=== PATIENT | male | born 1965 | race Caucasian/White ===

== ENCOUNTER 2019-06-05 14:02 | Inpatient (IN) ==
[2019-06-05] MEDS ORDERED: Naloxone 0.4 MG/ML INJ IVP PRN (16:38)
[2019-06-05] MEDS: 0.9 % Sodium Chloride 1,000 ML IVC SCH (18:10)
[2019-06-05] MEDS: Morphine Sulfate 2 MG/ML SYRINGE IVP PRN (18:11)
[2019-06-05 19:30] LABS: Hepatitis B Surface Antigen Nonreactive (Nonreactive)
[2019-06-05 19:59] LABS: Hepatitis C Virus Antibody Nonreactive (Nonreactive)
[2019-06-05 20:00] LABS: Hepatitis B Core IgM Nonreactive (Nonreactive)
[2019-06-05 20:01] LABS: Hepatitis A Antibody IgM Nonreactive (Nonreactive)
[2019-06-06] MEDS: Morphine Sulfate 2 MG/ML SYRINGE IVP PRN ×3 (00:24→11:44)
[2019-06-06 01:46] LABS: Basophils % 0.8 %; Eosinophils # 0.6 K/mcL (0.0-0.6); Eosinophils % 11.2 %; Hematocrit 38.2 % (37.5-50.1); Hemoglobin 12.9 g/dL (12.9-16.9); Immature Granulocytes % 0.2 % (0-4); Lymphocytes # 2.1 K/mcL (0.6-4.6); Lymphocytes % 39.4 %; Mean Corpuscular HGB Conc 33.8 g/dL (31.6-35.5); Mean Corpuscular Hemoglobin 31.4 pg (28.0-33.3); Mean Corpuscular Volume 92.9 fL (83.0-100.0); Mean Platelet Volume 11.1 fL (9.4-12.4); Monocytes # 0.8 K/mcL (0.0-1.3); Neutrophils # 1.8 K/mcL (1.6-8.9); Platelet Count 179 K/mcL (140-400); Red Blood Count 4.11 M/mcL (4.19-5.50); Red Cell Distribution Width 15.6 % (11.5-14.5); Segmented Neutrophils % 33.4 %; White Blood Count 5.3 K/mcL (4.3-11.1)
[2019-06-06 02:18] LABS: BUN/Creatinine Ratio 14 (6-26); Blood Urea Nitrogen 12 mg/dL (6-20); Calcium 8.2 mg/dL (8.6-10.3); Carbon Dioxide 20 mEq/L (23-29); Chloride 107 mEq/L (98-107); Glucose 73 mg/dL (70-105); Osmolality,Calculated 278 (280-300); Potassium 4.2 mEq/L (3.5-5.1); Sodium 135 mEq/L (136-145); eGFR For African Americans > 60 (> 60); eGFR For Non-African Americans > 60 (> 60)
[2019-06-06] MEDS: 0.9 % Sodium Chloride 1,000 ML IVC SCH (05:10)
[2019-06-06 09:44] LABS: Albumin 3.4 g/dL (3.5-5.7); Albumin/Globulin Ratio 1.3 (1.1-2.2); Alkaline Phosphatase 131 Units/L (34-104); Aspartate Amino Transferase 848 Units/L (13-39); Bilirubin,Direct 1.9 mg/dL (0.0-0.2); Bilirubin,Indirect 2.7 mg/dL (0.0-1.0); Bilirubin,Total 4.6 mg/dL (0.3-1.0); Globulin 2.6 g/dL (2.4-3.5)
[2019-06-06 09:45] LABS: Alanine Aminotransferase 908 Units/L (7-52)
[2019-06-06] MEDS: Piperacillin/Tazobactam 3.375 GM in 0.9 % Sodium Chloride Mini Bag 100 ML IVPB SCH ×3 (11:44→23:36)
[2019-06-06] MEDS ORDERED: *HR* Labetalol 20 MG/4 ML SYRINGE IVP PRN (19:18)
[2019-06-06] MEDS ORDERED: *HR* Promethazine 25 MG/ML VIAL IVP PRN (19:18)
[2019-06-06] MEDS ORDERED: *HR* HYDROmorphone (PF) 1 MG/ML SYRINGE IVP PRN (19:18)
[2019-06-06] MEDS ORDERED: Ondansetron 4 MG/2 ML VIAL IVP PRN (19:18)
[2019-06-06] MEDS ORDERED: *HR* FentaNYL (PF) 100 MCG/2 ML VIAL ONE (20:13)
[2019-06-06] MEDS ORDERED: *HR* Midazolam HCl 2 MG/2 ML VIAL ONE (20:13)
[2019-06-06] MEDS ORDERED: Lidocaine -MPF 2% 2 ML VIAL ONE (20:13)
[2019-06-06] MEDS ORDERED: *HR* Succinylcholine 200 MG/10 ML VIAL IVP ONE (20:13)
[2019-06-06] MEDS ORDERED: Dexamethasone 4 MG/ML VIAL ONE (20:13)
[2019-06-06] MEDS ORDERED: *HR* Propofol 200 MG/20 ML VIAL IVP ONE (20:13)
[2019-06-06] MEDS ORDERED: Ondansetron 4 MG/2 ML VIAL ONE (20:13)
[2019-06-06] MEDS ORDERED: *HR* Rocuronium Bromide 50 MG/5 ML VIAL ONE (20:13)
[2019-06-06] MEDS ORDERED: EPHEDrine 50 MG/ML VIAL ONE (20:24)
[2019-06-06] MEDS ORDERED: *HR* PHENYLEPHRINE 1,000 MCG/10 ML SYRINGE IVP ONE (20:27)
[2019-06-06] MEDS ORDERED: *HR* HYDROMORPHONE 2 MG/ML VIAL ONE (20:46)
[2019-06-06] MEDS ORDERED: Morphine Sulfate 2 MG/ML SYRINGE IVP PRN (22:43)
[2019-06-06] MEDS ORDERED: Naloxone 0.4 MG/ML INJ IVP PRN (22:43)
[2019-06-07 03:36] LABS: Basophils % 0.3 %; Eosinophils % 0.5 %; Hematocrit 40.8 % (37.5-50.1); Immature Granulocytes % 0.3 % (0-4); Lymphocytes # 0.9 K/mcL (0.6-4.6); Lymphocytes % 15.8 %; Mean Corpuscular HGB Conc 31.9 g/dL (31.6-35.5); Mean Corpuscular Volume 94.2 fL (83.0-100.0); Mean Platelet Volume 11.7 fL (9.4-12.4); Monocytes # 0.2 K/mcL (0.0-1.3); Monocytes % 4.2 %; Neutrophils # 4.5 K/mcL (1.6-8.9); Platelet Count 251 K/mcL (140-400); Red Blood Count 4.33 M/mcL (4.19-5.50); Red Cell Distribution Width 16.3 % (11.5-14.5); Segmented Neutrophils % 78.9 %; White Blood Count 5.8 K/mcL (4.3-11.1)
[2019-06-07 04:23] LABS: Alanine Aminotransferase 983 Units/L (7-52); Albumin 3.7 g/dL (3.5-5.7); Albumin/Globulin Ratio 1.3 (1.1-2.2); Alkaline Phosphatase 138 Units/L (34-104); Aspartate Amino Transferase 943 Units/L (13-39); BUN/Creatinine Ratio 12 (6-26); Bilirubin,Total 6.8 mg/dL (0.3-1.0); Blood Urea Nitrogen 17 mg/dL (6-20); Calcium 8.9 mg/dL (8.6-10.3); Carbon Dioxide 18 mEq/L (23-29); Chloride 104 mEq/L (98-107); Globulin 2.9 g/dL (2.4-3.5); Glucose 119 mg/dL (70-105); Osmolality,Calculated 283 (280-300); Phosphorous 4.7 mg/dL (2.7-4.5); Potassium 4.6 mEq/L (3.5-5.1); Sodium 135 mEq/L (136-145); Total Protein 6.6 g/dL (6.4-8.9); eGFR For African Americans > 60 (> 60); eGFR For Non-African Americans 53 (> 60)
[2019-06-07] MEDS: Piperacillin/Tazobactam 3.375 GM in 0.9 % Sodium Chloride Mini Bag 100 ML IVPB SCH ×3 (08:07→23:27)
[2019-06-07 09:40] LABS: INR 1.2; Prothrombin Time 13.6 Seconds (9.4-12.1)
[2019-06-07] MEDS: 0.9 % Sodium Chloride 1,000 ML IVC SCH (09:44)
[2019-06-07 12:50] LABS: Amphetamine Screen,Urine Negative ng/mL (Cutoff=1000); Barbiturate Screen,Urine Negative ng/mL (Cutoff=200); Benzodiazepines Screen,Urine Positive ng/mL (Cutoff=200); Cannabinoid Screen,Urine Negative ng/mL (Cutoff = 50); Cocaine Screen,Urine Negative ng/mL (Cutoff= 300); Opiate Screen,Urine Positive ng/mL (Cutoff=300); Phencyclidine Screen,Urine Negative ng/mL (Cutoff=25)
[2019-06-07 13:53] LABS: % Iron Saturation 30 % (20-55); Iron 108 mcg/dL (65-175); Transferrin 259 mg/dL (203-362)
[2019-06-07] MEDS: Thiamine (B-1) 100 MG TABLET PO SCH (14:19)
[2019-06-07] MEDS: Folic Acid 1 MG TABLET PO SCH (14:19)
[2019-06-08 02:00] LABS: Basophils % 0.5 %; Eosinophils # 0.1 K/mcL (0.0-0.6); Eosinophils % 1.8 %; Hematocrit 30.4 % (37.5-50.1); Immature Granulocytes % 0.3 % (0-4); Lymphocytes # 2.1 K/mcL (0.6-4.6); Lymphocytes % 28.9 %; Mean Corpuscular HGB Conc 34.2 g/dL (31.6-35.5); Mean Corpuscular Hemoglobin 31.2 pg (28.0-33.3); Mean Corpuscular Volume 91.3 fL (83.0-100.0); Mean Platelet Volume 11.3 fL (9.4-12.4); Monocytes % 12.9 %; Neutrophils # 4.1 K/mcL (1.6-8.9); Platelet Count 228 K/mcL (140-400); Red Blood Count 3.33 M/mcL (4.19-5.50); Red Cell Distribution Width 15.9 % (11.5-14.5); Segmented Neutrophils % 55.6 %; White Blood Count 7.4 K/mcL (4.3-11.1)
[2019-06-08 02:03] LABS: Hemoglobin 10.4 g/dL (12.9-16.9)
[2019-06-08 02:06] LABS: INR 1.2; Prothrombin Time 13.6 Seconds (9.4-12.1)
[2019-06-08 02:32] LABS: Alanine Aminotransferase 724 Units/L (7-52); Albumin 3.2 g/dL (3.5-5.7); Albumin/Globulin Ratio 1.3 (1.1-2.2); Alkaline Phosphatase 131 Units/L (34-104); Aspartate Amino Transferase 604 Units/L (13-39); BUN/Creatinine Ratio 18 (6-26); Bilirubin,Total 4.1 mg/dL (0.3-1.0); Blood Urea Nitrogen 21 mg/dL (6-20); Calcium 8.3 mg/dL (8.6-10.3); Carbon Dioxide 23 mEq/L (23-29); Chloride 104 mEq/L (98-107); Globulin 2.5 g/dL (2.4-3.5); Glucose 120 mg/dL (70-105); Osmolality,Calculated 282 (280-300); Potassium 3.9 mEq/L (3.5-5.1); Sodium 134 mEq/L (136-145); Total Protein 5.7 g/dL (6.4-8.9); eGFR For African Americans > 60 (> 60); eGFR For Non-African Americans > 60 (> 60)
[2019-06-08] MEDS: 0.9 % Sodium Chloride 1,000 ML IVC SCH ×2 (05:51→08:36)
[2019-06-08] MEDS: Thiamine (B-1) 100 MG TABLET PO SCH (08:37)
[2019-06-08] MEDS: Folic Acid 1 MG TABLET PO SCH (08:37)
[2019-06-08] MEDS: Piperacillin/Tazobactam 3.375 GM in 0.9 % Sodium Chloride Mini Bag 100 ML IVPB SCH ×3 (08:39→23:30)
[2019-06-08] MEDS ORDERED: MOM Conc 10 ML UD.LIQ PO ONE (11:57)
[2019-06-08] MEDS: polyethylene glycoL 3350 17 GM POWD.PACK PO SCH (12:30)
[2019-06-08] MEDS: Sennosides/Docusate Sodium TABLET PO SCH ×2 (12:30→20:39)
[2019-06-08] MEDS ORDERED: Bisacodyl 10 MG RECTAL SUPPOSITORY RC PRN (17:53)
[2019-06-09 00:47] LABS: Basophils # 0.1 K/mcL (0.0-0.2); Basophils % 0.8 %; Eosinophils # 0.5 K/mcL (0.0-0.6); Hematocrit 30.5 % (37.5-50.1); Hemoglobin 10.4 g/dL (12.9-16.9); Immature Granulocytes % 0.5 % (0-4); Lymphocytes # 2.8 K/mcL (0.6-4.6); Lymphocytes % 42.9 %; Mean Corpuscular HGB Conc 34.1 g/dL (31.6-35.5); Mean Corpuscular Hemoglobin 31.4 pg (28.0-33.3); Mean Corpuscular Volume 92.1 fL (83.0-100.0); Mean Platelet Volume 10.9 fL (9.4-12.4); Monocytes # 0.9 K/mcL (0.0-1.3); Monocytes % 14.1 %; Neutrophils # 2.2 K/mcL (1.6-8.9); Platelet Count 212 K/mcL (140-400); Red Blood Count 3.31 M/mcL (4.19-5.50); Red Cell Distribution Width 16.3 % (11.5-14.5); Segmented Neutrophils % 33.7 %; White Blood Count 6.5 K/mcL (4.3-11.1)
[2019-06-09 01:21] LABS: Alanine Aminotransferase 775 Units/L (7-52); Albumin 3.1 g/dL (3.5-5.7); Albumin/Globulin Ratio 1.2 (1.1-2.2); Alkaline Phosphatase 140 Units/L (34-104); Aspartate Amino Transferase 707 Units/L (13-39); BUN/Creatinine Ratio 15 (6-26); Bilirubin,Total 3.8 mg/dL (0.3-1.0); Blood Urea Nitrogen 17 mg/dL (6-20); Calcium 8.1 mg/dL (8.6-10.3); Carbon Dioxide 24 mEq/L (23-29); Chloride 105 mEq/L (98-107); Globulin 2.5 g/dL (2.4-3.5); Glucose 88 mg/dL (70-105); Osmolality,Calculated 283 (280-300); Potassium 3.9 mEq/L (3.5-5.1); Sodium 136 mEq/L (136-145); Total Protein 5.6 g/dL (6.4-8.9); eGFR For African Americans > 60 (> 60); eGFR For Non-African Americans > 60 (> 60)
[2019-06-09] MEDS: polyethylene glycoL 3350 17 GM POWD.PACK PO SCH (08:45)
[2019-06-09] MEDS: Thiamine (B-1) 100 MG TABLET PO SCH (08:45)
[2019-06-09] MEDS: Sennosides/Docusate Sodium TABLET PO SCH (08:45)
[2019-06-09] MEDS: Folic Acid 1 MG TABLET PO SCH (08:45)
[2019-06-09] MEDS: Piperacillin/Tazobactam 3.375 GM in 0.9 % Sodium Chloride Mini Bag 100 ML IVPB SCH (08:46)
[2019-06-09 10:02] LABS: ANA IgG by ELISA DETECTED (None Detected); F-Actin (sm muscle) Ab IgG 42 Units (0-19); Immunoglobulin A (CELIAC) 115 mg/dL (68-408)
[2019-06-09 10:07] LABS: AFP Tumor Marker Non-Pregnant 7 ng/mL (0-9)
[2019-06-09 11:15] VITALS: BP 126/78
[2019-06-10 06:55] LABS: Serine Protease-3 Antibody 5 AU/mL (0-19); Smooth Muscle Ab Titer IgG <1:20 (<1:20); Tissue Transglutaminase IgA <2 U/mL (0-3)
[2019-06-10 12:50] LABS: Alpha 2 Globulin (PEP) 0.51 g/dL (0.48-1.05); Beta Globulin (PEP) 0.67 g/dL (0.48-1.10)
[2019-06-10 15:21] LABS: IFE Reflexed NOT DONE
[2019-06-10 15:50] LABS: A1A SZ Specimen WHOLE BLOOD; Alpha-1-Antitrypsin S Allele HETEROZYGOUS; Alpha-1-Antitrypsin Z Allele NEGATIVE
[2019-06-10 17:04] LABS: Alpha-1-Antitrypsin 148 mg/dL (90-200)
[2019-06-10 18:24] LABS: Saccharomyces cerevisiae IgA 4.9 Units (0.0-24.9)
[2019-06-12 07:14] LABS: ANA HEp-2 IgG IFA <1:80 (<1:80)
== END 2019-06-09 13:03 | disposition home or self-care (01) | DRG 418 ==
LOC: 3BNU → SUATTDRO 15:46
PROVIDERS: ADMIT Internal Medicine; ATTEND Internal Medicine

== ENCOUNTER 2021-06-27 04:42 | Observation (INO) ==
[2021-06-27] MEDS ORDERED: Isovue-370 500 ML BOTTLE IVP ONE (05:06)
[2021-06-27 05:13] LABS: Basophils % 0.4 %; Eosinophils # 0.2 K/mcL (0.0-0.6); Eosinophils % 2.4 %; Hemoglobin 12.2 g/dL (12.9-16.9); Immature Granulocytes % 0.3 % (0-4); Lymphocytes # 2.7 K/mcL (0.6-4.6); Mean Corpuscular Hemoglobin 30.8 pg (28.0-33.3); Mean Corpuscular Volume 93.4 fL (83.0-100.0); Mean Platelet Volume 11.6 fL (9.4-12.4); Monocytes # 0.9 K/mcL (0.0-1.3); Monocytes % 12.1 %; Neutrophils # 3.7 K/mcL (1.6-8.9); Platelet Count 158 K/mcL (140-400); Red Blood Count 3.96 M/mcL (4.19-5.50); Red Cell Distribution Width 15.2 % (11.5-14.5); Segmented Neutrophils % 48.8 %
[2021-06-27 05:23] LABS: White Blood Count 7.6 K/mcL (4.3-11.1)
[2021-06-27 05:25] LABS: INR 1.4; Prothrombin Time 15.9 Seconds (9.4-12.1)
[2021-06-27 05:27] LABS: Activated Partial Thrombo Time 31.2 Seconds (26.0-36.0)
[2021-06-27 05:38] LABS: Alanine Aminotransferase 90 Units/L (7-52); Albumin/Globulin Ratio 1.2 (1.1-2.2); Alkaline Phosphatase 73 Units/L (34-104); Aspartate Amino Transferase 88 Units/L (13-39); BUN/Creatinine Ratio 14 (6-26); Bilirubin,Direct 0.7 mg/dL (0.0-0.2); Bilirubin,Indirect 1.2 mg/dL (0.0-1.0); Bilirubin,Total 1.9 mg/dL (0.3-1.0); Blood Urea Nitrogen 14 mg/dL (6-20); Calcium 9.2 mg/dL (8.6-10.3); Carbon Dioxide 27 mEq/L (23-29); Chloride 107 mEq/L (98-107); Globulin 3.3 g/dL (2.4-3.5); Glucose 91 mg/dL (70-105); Osmolality,Calculated 288 (280-300); Potassium 3.9 mEq/L (3.5-5.1); Sodium 139 mEq/L (136-145); Total Protein 7.3 g/dL (6.4-8.9); eGFR For African Americans > 60 (> 60); eGFR For Non-African Americans > 60 (> 60)
[2021-06-27] MEDS ORDERED: Aspirin 325 MG TABLET PO ONE (05:41)
[2021-06-27] MEDS: Nitroglycerin 0.4 MG TAB.SUBL SL STA ×2 (06:07→06:18)
[2021-06-27] MEDS ORDERED: Morphine Sulfate 2 MG/ML SYRINGE IVP ONE (06:44)
[2021-06-27] MEDS ORDERED: Ondansetron 4 MG/2 ML VIAL IVP STA (06:45)
[2021-06-27] MEDS ORDERED: Naloxone 0.4 MG/ML INJ IVP PRN (09:54)
[2021-06-27] MEDS ORDERED: Ondansetron 4 MG/2 ML VIAL IVP PRN (09:54)
[2021-06-27] MEDS ORDERED: *HR* HYDROcodone/Acet 5/325 mg TABLET PO PRN (09:54)
[2021-06-27] MEDS ORDERED: Acetaminophen 325 MG TABLET PO PRN (09:54)
[2021-06-27] MEDS ORDERED: *HR* OxyCODONE Immed Rel 5 MG TABLET PO PRN (09:54)
[2021-06-27] MEDS ORDERED: Perflutren Lipid Microsphere 1.3 ML in 0.9 % Sodium Chloride 8.7 ML IVP PRN (10:00)
[2021-06-27] MEDS ORDERED: *HR* Heparin 5,000 UNIT/ML VIAL IVP PRN (10:01)
[2021-06-27] MEDS ORDERED: *HR* Heparin 5,000 UNIT/ML VIAL IVP ONE (10:01)
[2021-06-27] MEDS ORDERED: Heparin 25,000UNIT/250ML 1/2NS 25,000 UNIT/250 ML IV.SOLN IVC SCH (10:15)
[2021-06-27 13:10] LABS: Immature Platelets 6.8 % (1.1-6.1); Mean Platelet Volume 11.2 fL (9.4-12.4); Red Cell Distribution Width 15.2 % (11.5-14.5)
[2021-06-27 13:21] LABS: Hematocrit 34.5 % (37.5-50.1); Hemoglobin 11.4 g/dL (12.9-16.9); Mean Corpuscular Hemoglobin 31.1 pg (28.0-33.3); Red Blood Count 3.67 M/mcL (4.19-5.50)
[2021-06-27] MEDS: Heparin 25,000UNIT/250ML 1/2NS 25,000 UNIT/250 ML IV.SOLN IVC SCH (13:25)
[2021-06-27] MEDS ORDERED: Nicotine 2 MG GUM BC PRN (14:22)
[2021-06-27] MEDS: CYCLOSPORINE 25 MG PO SCH (19:51)
[2021-06-27] MEDS: *HR* Heparin 5,000 UNIT/ML VIAL IVP PRN (20:28)
[2021-06-28 03:26] LABS: Red Blood Count 3.68 M/mcL (4.19-5.50); Red Cell Distribution Width 15.2 % (11.5-14.5)
[2021-06-28 03:28] LABS: Basophils % 0.6 %; Eosinophils # 0.3 K/mcL (0.0-0.6); Eosinophils % 4.3 %; Hematocrit 34.2 % (37.5-50.1); Hemoglobin 11.4 g/dL (12.9-16.9); Immature Granulocytes % 0.5 % (0-4); Immature Platelets 7.9 % (1.1-6.1); Lymphocytes % 41.9 %; Mean Corpuscular HGB Conc 33.3 g/dL (31.6-35.5); Mean Corpuscular Volume 92.9 fL (83.0-100.0); Mean Platelet Volume 11.5 fL (9.4-12.4); Monocytes # 0.9 K/mcL (0.0-1.3); Monocytes % 14.2 %; Neutrophils # 2.4 K/mcL (1.6-8.9); Platelet Count 134 K/mcL (140-400); Segmented Neutrophils % 38.5 %; White Blood Count 6.3 K/mcL (4.3-11.1)
[2021-06-28 03:32] LABS: Lymphocytes # 2.6 K/mcL (0.6-4.6)
[2021-06-28] MEDS: *HR* Heparin 5,000 UNIT/ML VIAL IVP PRN (03:33)
[2021-06-28 03:40] LABS: BUN/Creatinine Ratio 14 (6-26); Blood Urea Nitrogen 12 mg/dL (6-20); Calcium 8.5 mg/dL (8.6-10.3); Carbon Dioxide 24 mEq/L (23-29); Chloride 105 mEq/L (98-107); Glucose 83 mg/dL (70-105); Magnesium 1.7 mg/dL (1.6-2.6); Osmolality,Calculated 277 (280-300); Potassium 3.8 mEq/L (3.5-5.1); Sodium 134 mEq/L (136-145); eGFR For African Americans > 60 (> 60); eGFR For Non-African Americans > 60 (> 60)
[2021-06-28 03:41] LABS: Albumin 3.4 g/dL (3.5-5.7); Albumin/Globulin Ratio 1.1 (1.1-2.2); Bilirubin,Direct 0.7 mg/dL (0.0-0.2); Bilirubin,Indirect 1.1 mg/dL (0.0-1.0); Bilirubin,Total 1.8 mg/dL (0.3-1.0); Globulin 3.1 g/dL (2.4-3.5); Total Protein 6.5 g/dL (6.4-8.9)
[2021-06-28] MEDS ORDERED: Aspirin Enteric Coated 81 MG Tablet PO SCH ×2 (09:00)
[2021-06-28] MEDS ORDERED: Nicotine 14 MG PATCH.TD24 TD SCH (09:00)
[2021-06-28] MEDS ORDERED: predniSONE 5 MG TABLET PO SCH (09:00)
[2021-06-28] MEDS: CYCLOSPORINE 25 MG PO SCH (09:18)
[2021-06-28] MEDS: Heparin 25,000UNIT/250ML 1/2NS 25,000 UNIT/250 ML IV.SOLN IVC SCH (10:26)
[2021-06-28 11:06] VITALS: BP 111/72; PULSE 60; TEMP 98; O2SAT 91
== END 2021-06-28 13:13 | disposition left against medical advice (07) ==
LOC: EMEROOARM 04:42 → 2ANU 04:42 → SUATTDRO 09:42 → 2ANU 10:41
PROVIDERS: ADMIT Pharmacist; ATTEND Internal Medicine

== ENCOUNTER 2021-11-06 20:30 | Inpatient (IN) ==
[2021-11-06] MEDS ORDERED: Benzonatate 100 MG CAPSULE PO STA (21:24)
[2021-11-06] MEDS ORDERED: Ondansetron 4 MG/2 ML VIAL IVP STA ×2 (21:25→23:49)
[2021-11-06] MEDS ORDERED: Morphine Sulfate 2 MG/ML SYRINGE IVP ONE (21:25)
[2021-11-06 22:08] LABS: Basophils # 0.1 K/mcL (0.0-0.2); Eosinophils # 0.4 K/mcL (0.0-0.6); Eosinophils % 6.1 %; Hematocrit 37.3 % (37.5-50.1); Hemoglobin 13.1 g/dL (12.9-16.9); Immature Granulocytes % 0.3 % (0-4); Lymphocytes # 1.3 K/mcL (0.6-4.6); Mean Corpuscular HGB Conc 35.1 g/dL (31.6-35.5); Mean Corpuscular Hemoglobin 31.1 pg (28.0-33.3); Mean Corpuscular Volume 88.6 fL (83.0-100.0); Mean Platelet Volume 10.5 fL (9.4-12.4); Monocytes # 1.1 K/mcL (0.0-1.3); Monocytes % 18.5 %; Neutrophils # 3.1 K/mcL (1.6-8.9); Platelet Count 217 K/mcL (140-400); Red Blood Count 4.21 M/mcL (4.19-5.50); Red Cell Distribution Width 16.9 % (11.5-14.5); Segmented Neutrophils % 52.1 %; White Blood Count 5.9 K/mcL (4.3-11.1)
[2021-11-06 22:15] LABS: INR 1.4; Prothrombin Time 15.5 Seconds (9.4-12.1)
[2021-11-06 22:17] LABS: Activated Partial Thrombo Time 35.6 Seconds (26.0-36.0)
[2021-11-06 22:33] LABS: Alanine Aminotransferase 193 Units/L (7-52); Albumin 3.2 g/dL (3.5-5.7); Albumin/Globulin Ratio 0.7 (1.1-2.2); Alkaline Phosphatase 143 Units/L (34-104); Aspartate Amino Transferase 381 Units/L (13-39); BUN/Creatinine Ratio 16 (6-26); Bilirubin,Direct 3.1 mg/dL (0.0-0.2); Bilirubin,Indirect 2.6 mg/dL (0.0-1.0); Bilirubin,Total 5.7 mg/dL (0.3-1.0); Blood Urea Nitrogen 45 mg/dL (6-20); Calcium 8.9 mg/dL (8.6-10.3); Carbon Dioxide 17 mEq/L (23-29); Chloride 102 mEq/L (98-107); Ethanol < 10 mg/dL (Less than 10); Globulin 4.3 g/dL (2.4-3.5); Glucose 97 mg/dL (70-105); Lipase 95 Units/L (11-82); Osmolality,Calculated 277 (280-300); Potassium 4.3 mEq/L (3.5-5.1); Sodium 128 mEq/L (136-145); Total Protein 7.5 g/dL (6.4-8.9); Troponin I < 0.03 ng/mL (< 0.04)
[2021-11-06 23:24] LABS: Amphetamine Screen,Urine Negative ng/mL (Cutoff=1000); Barbiturate Screen,Urine Negative ng/mL (Cutoff=200); Benzodiazepines Screen,Urine Negative ng/mL (Cutoff=200); Cannabinoid Screen,Urine Negative ng/mL (Cutoff = 50); Cocaine Screen,Urine Negative ng/mL (Cutoff= 300); Opiate Screen,Urine Positive ng/mL (Cutoff=300); Phencyclidine Screen,Urine Negative ng/mL (Cutoff=25)
[2021-11-06] MEDS ORDERED: Famotidine 20 MG/2 ML VIAL IVP ONE (23:49)
[2021-11-07] MEDS ORDERED: cefTRIAXone 2,000 MG in 0.9 % Sodium Chloride Mini Bag 100 ML IVPB ONE (00:05)
[2021-11-07] MEDS ORDERED: Azithromycin 500 MG in 0.9 % Sodium Chloride 250 ML IVPB ONE (00:06)
[2021-11-07] MEDS ORDERED: Morphine Sulfate 2 MG/ML SYRINGE IVP ONE (00:12)
[2021-11-07 04:34] LABS: Influenza A PCR Negative (Negative); Influenza B PCR Negative (Negative); Resp. Syncytial Virus PCR Negative (Negative)
[2021-11-07 04:42] LABS: SARS-CoV-2 by PCR (In House) Negative (Negative)
[2021-11-07] MEDS ORDERED: 0.9 % Sodium Chloride 1,000 ML IVC ONE (09:24)
[2021-11-07] MEDS ORDERED: predniSONE 10 MG TABLET PO SCH (09:30)
[2021-11-07] MEDS ORDERED: Melatonin 3 MG TABLET PO PRN (09:35)
[2021-11-07] MEDS ORDERED: Acetaminophen 325 MG TABLET PO PRN (09:35)
[2021-11-07] MEDS ORDERED: Ondansetron 4 MG/2 ML VIAL IVP PRN (09:35)
[2021-11-07] MEDS ORDERED: Benzonatate 100 MG CAPSULE PO PRN (09:39)
[2021-11-07] MEDS ORDERED: Ipratropium/Albuterol Neb 3 ML IH PRN (10:29)
[2021-11-07] MEDS: Ipratropium/Albuterol Neb 3 ML IH SCH ×3 (11:23→22:18)
[2021-11-07 13:02] LABS: Creatinine,Urine 355 mg/dL; Sodium, Urine < 10.0 mEq/L
[2021-11-07] MEDS ORDERED: Albumin 25% 25gram/100mL 25 GM/100 ML IV.SOLN IVPB SCH (16:00)
[2021-11-07] MEDS ORDERED: *HR* Heparin 5,000 UNIT/ML VIAL SQ SCH (21:00)
[2021-11-07] MEDS ORDERED: Apixaban 5 MG TABLET PO SCH (21:00)
[2021-11-07 21:59] VITALS: BP 103/53; PULSE 82; TEMP 98.6
[2021-11-07 22:20] VITALS: O2SAT 96
[2021-11-08] MEDS ORDERED: Aspirin 81 MG TAB.CHEW PO SCH (09:00)
[2021-11-08] MEDS ORDERED: Metoprolol XL (24 HR) Succ 25 MG TAB.ER.24H PO SCH (09:00)
[2021-11-08] MEDS ORDERED: cefTRIAXone 2,000 MG in 0.9 % Sodium Chloride 20 ML IVP SCH (09:00)
== END 2021-11-07 22:41 | disposition short-term general hospital (02) | DRG 433 ==
LOC: 3BNU 20:30 → EMEROOARM 20:30 → 3BNU 11-07 10:21
PROVIDERS: ADMIT Internal Medicine; ATTEND Internal Medicine